=== PATIENT | male | born 1935 | race Caucasian/White ===

== ENCOUNTER 2023-11-07 16:17 | Inpatient (IN) ==
[2023-11-07 18:34] VITALS: BMI 30.1
--- NOTE | 2023-11-07 18:38 | DR.H&P ---
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 Now with non-healing wound to the right third toe and had lower extremity Doppler studies showing calcified vessels with indices of 1.61 on the right and left ankle brachial indices of 0.89 and 1.13 . Past Medical History Past Medical History: Coronary Artery Disease, CVA (old right hemispheric stroke with weakness of the left arm and left leg ), Dementia, Diabetes and Dyslipidemia Additional Medical History: multiple skin cancers removed from the ,face head and ears , history of aortic valve replacement ( bovine) ,history of stints of the right leg Past Surgical History Surgical History: CABG/Valve Surgery and Other (pacemaker placement, amputation right toe and distal phalanx right 2nd toe) Social History Does patient currently use any type of tobacco product: No Have you used tobacco products in the last 12 months: No Alcohol Use: None Drug Use: None Medications Home Medications: Clindamycin 300 milligrams Q8 hours Eliquis 2.5 milligrams B ID aspirin 81 milligrams daily atorvastin 80 mg daily Lasix 40 milligrams daily Coreg 12.5 milligrams B ID amiodarone 200 milligrams daily Linzess 72 micrograms before each meal Review of Systems Constitutional: See HPI Eyes: No Symptoms Reported ENT: No Symptoms Reported Respiratory: No Symptoms Reported Cardiovascular: No Symptoms Reported Gastrointestinal: No Symptoms Reported Genitourinary: No Symptoms Reported Musculoskeletal: No Symptoms Reported Skin: See HPI Neurological: No Symptoms Reported Physical Exam Vital Signs: Vital Signs Temperature 97.8 F Pulse Rate [Bilateral Radial] 60 Respiratory Rate 17 Blood Pressure [Left Arm] 169/73 O2 Sat by Pulse Oximetry 96 Oriented: Person and Not Oriented; negative Time or Place Eyes: Normal Ear: Normal Nose: Normal Throat: Normal Respiratory: Clear Throughout Cardiovascular: Normal and Other (paced rhythm, palpable femoral pulses bilaterally, absent pulses both legs at the ankles ) : Normal Auscultation: Bowel Sounds: Normal Palpation: Normal Tenderness: Normal Skin: Other (multiple skin cancers and multiple incisions of the head and ears for removal of several skin cancers in the past ) Musculoskeletal: Normal Psychiatric: Normal Mood Description: Calm Affect: Normal Speech Pattern: Clear Assessment/Plan (1) Atherosclerosis of [place] arteries of extremities with rest pain, right leg: Status: Acute Plan: reason for admission ,wound right third toe ,begin Heparin drip ,obtain CT angiogram of the aorta with bilateral runoff (2) Atherosclerosis of [place] arteries of extremities with rest pain, left leg: Status: Acute Plan: CT angiogram of the aorta with bilateral runoff (3) Aortic valve disorder: Status: Acute Plan: bovine valve in place ,patient on Eliquis (4) Type 2 diabetes mellitus without complications: Status: Acute Plan: sliding scale insulin (5) Essential (primary) hypertension: Status: Acute Plan: home medications (6) Hyperlipidemia: Status: Acute Plan: home medications (7) Personal history of cerebrovascular accident with current residual effects: Status: Acute Plan: follow (8) Pacemaker: Status: Acute Plan: follow ,obtain 12 lead EKG Review H&P Reviewed: Yes Patient was examined?: Yes
[2023-11-07 18:56] LABS: BASOPHILS # (AUTO) 0.1 X10^3/uL (0.0-0.1); EOSINOPHILS # (AUTO) 0.4 x10^3/uL (0.0-0.2); EOSINOPHILS % (AUTO) 3.4 % (0.9-2.9); HEMATOCRIT 31.6 % (42.0-54.0); HEMOGLOBIN 10.5 g/dL (13.5-18.0); LYMPHOCYTES # (AUTO) 1.7 X10^3/uL (1.3-2.9); LYMPHOCYTES % (AUTO) 15.9 % (21.0-51.0); MEAN CORPUSCULAR HEMOGLOBIN 30.7 pg (27.0-34.0); MEAN CORPUSCULAR HGB CONC 33.2 g/dL (33.0-35.0); MEAN CORPUSCULAR VOLUME 92.6 fL (80.0-100.0); MEAN PLATELET VOLUME 7.5 fL (7.4-11.0); MONOCYTES # (AUTO) 1.2 x10^3/uL (0.3-0.8); MONOCYTES % (AUTO) 10.9 % (0.0-13.0); NEUTROPHILS # (AUTO) 7.4 x10^3/uL (2.2-4.8); NEUTROPHILS % (AUTO) 68.8 % (42.0-75.0); PLATELET COUNT 281 X10^3/uL (150.0-450.0); RED BLOOD COUNT 3.41 X10^6/uL (4.7-6.0); WHITE BLOOD COUNT 10.8 X10^3/uL (3.6-10.0)
[2023-11-07 19:00] LABS: INR 1.47 (0.8-1.3)
[2023-11-07 19:06] LABS: ALANINE AMINOTRANSFERASE 15 Units/L (12-78); ALBUMIN 2.4 g/dL (3.4-5.0); ALKALINE PHOSPHATASE 81 Units/L (46-116); ASPARTATE AMINO TRANSFERASE 16 Units/L (15-37); BLOOD UREA NITROGEN 61 mg/dL (7-18); CALCIUM 8.5 mg/dL (8.5-10.1); CARBON DIOXIDE 24.8 mmol/L (21-32); CHLORIDE 109 mmol/L (98-107); COR CA(FOR HYPOALB) 9.8 mg/dL (8.5-10.1); CREATININE 2.81 mg/dL (0.70-1.30); GLUCOSE 67 mg/dL (65-99); POTASSIUM 5.1 mmol/L (3.5-5.1); SODIUM 144 mmol/L (136-145); TOTAL PROTEIN 6.9 g/dL (6.4-8.2); eGFR NON BLACK RACES 23 (>60)
[2023-11-07] MEDS: LR 1,000 ML IV 1,000 ML IV SCH (19:18)
--- NOTE | 2023-11-07 19:33 | EKG ---
Test Reason : ISCHEMIA Blood Pressure : */* mmHG Vent. Rate : 60 BPM Atrial Rate : 60 BPM P-R Int : 248 ms QRS Dur : 170 ms QT Int : 510 ms P-R-T Axes : * 136 32 degrees QTc Int : 510 ms AV dual-paced rhythm with prolonged AV conduction Abnormal ECG No previous ECGs available Confirmed by Migel Arce MD ([id number]) on 11/08/2023 7:39:36 AM Referred By: Confirmed By: Migel Arce MD
[2023-11-07] MEDS: ZOSYN VIAL 3.375 GRAMS 3.375 G in NS 100 ML IV 100 ML IV SCH (20:00)
--- NOTE | 2023-11-07 20:36 | RAD ---
EXAM:CHESTHISTORY:CENTRAL LINE PLACEMENT;COMPARISON:None.TECHNIQUE:Fron arsh view of the chest was submitted for interpretation.FINDINGS:Left-sided cardiac pacer noted the cardiomediastinal silhouette is large in the size. Evidence of previous valvuloplasty. Lungs show left pleural fluid with left basilar airspace disease.IMPRESSION:Left pleural fluid with left basilar airspace disease. Left-sided cardiac pacer noted. Left-sided central catheter tip may project over the superior vena cava.THIS IS AN ELECTRONICALLY VERIFIED FINAL REPORT11/07/2023 8:32 PM - Electronically signed by Hemanth Villalba MD
[2023-11-07] MEDS: COREG TAB 12.5 MG PO SCH (20:53)
[2023-11-07] MEDS: HEPARIN SODIUM INJ 5000 UNITS IVP ONE ×2 (21:03→21:18)
[2023-11-07] MEDS: HEPARIN SODIUM IN D5W 25,000 UNITS/500 ML BAG IV PRN (21:17)
[2023-11-07] MEDS ORDERED: NovoLIN R (or HumuLIN R) SUBCUT PRN (21:22)
[2023-11-08] MEDS ORDERED: HIBICLENS WASH ONE (04:20)
[2023-11-08] MEDS: HIBICLENS WASH EXT ONE (05:31)
[2023-11-08] MEDS: ASPIRIN 81 MG CHEWTAB PO SCH (08:30)
[2023-11-08] MEDS: LIPITOR TAB 80 MG PO SCH (08:43)
[2023-11-08] MEDS: CORDARONE TAB 200 MG PO SCH (08:44)
[2023-11-08] MEDS: NS 100 ML IV 100 ML ONE (12:13)
[2023-11-08] MEDS: NS 1,000 ML IV 1,000 ML ONE (12:13)
[2023-11-08] MEDS: ANCEF VIAL 1 GRAM ONE (12:13)
[2023-11-08] MEDS: NEO-SYNEPHRINE INJ ONE (12:33)
[2023-11-08] MEDS: MARCAINE 0.5% ONE (12:43)
[2023-11-08] MEDS: VISIPAQUE 100 ML ONE (12:43)
[2023-11-08] MEDS: VISIPAQUE 50 ML ONE (12:43)
[2023-11-08] MEDS: DIPRIVAN VIAL 40 ML ONE (12:43)
[2023-11-08] MEDS: HEPARIN SODIUM IN D5W 75,000 UNITS/1,500 ML BAG ONE (12:43)
[2023-11-08] MEDS: HEPARIN SODIUM INJ 5000 UNITS ONE (12:45)
[2023-11-08] MEDS: NS 500 ML IV 500 ML IV ONE (12:58)
[2023-11-08] MEDS: PROTAMINE SULFATE 50 MG VIAL ONE (13:35)
[2023-11-08] MEDS: MARCAINE 0.25% INJ ONE (13:35)
--- NOTE | 2023-11-08 13:50 | OR.IMMED ---
IMMEDIATE POST-OP NOTE Immediate Post-Op Note Date of surgery/procedure: 11/08/23 Pre-Op Diagnosis: Critical ischemia right leg with non-healing wound right third toe Post-Op Diagnosis: same Procedure: aortogram, arteriogram right leg , Arch me and angioplasty right posterior tibial artery ,atherectomy and Drug coated balloon angioplasty right tibial peroneal trunk, angioplasty right anterior tibial artery Description of Procedure: dictated Surgeon/Brick Unloader Tender: Adonis Findings: occlusion of the take off of the Right posterior tibial artey, severe disease right tibial trunk ,diffuse disease of the entire right posterior tibial artery and right anterior tibial artery Estimated Blood Loss: < 50 cc Complications: none Progress Notes: return to the floor ,change to po antibiotics , slowly to remain ,BMP in the morning , begin Xarelto 2.5 mg bid , probably discharge tomorrow.
[2023-11-08] MEDS: SNACK - Diabetic Appropriate PO SCH (20:58)
[2023-11-08] MEDS: XARELTO PO SCH (21:13)
[2023-11-09 04:34] VITALS: TEMP 98.3
[2023-11-09 05:53] LABS: CALCIUM 7.6 mg/dL (8.5-10.1); CARBON DIOXIDE 22.7 mmol/L (21-32); CREATININE 2.95 mg/dL (0.70-1.30); POTASSIUM 5.2 mmol/L (3.5-5.1)
[2023-11-09 05:55] VITALS: PULSE 60
--- NOTE | 2023-11-09 08:32 | NOTE.SOAP ---
Soap Note Note for Day of Date of Exam: 11/09/23 Subjective Data Subjective Data: Patient is POD1 s/p 3rd digit amputation of the right foot. He is doing well this am and ready to go home. Denies any pain, fever, chills, sob, dizziness or nausea. 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 Explained that he is to keep dressings c/d/i until his follow up visit with dr. Garcia early next week. Patient being followed by Dr. Lamb for vascular intervention. I am putting him on a 10 day course of Doxycycline. He can be Full weight bearing in a surgical shoe. Dressings were clean this am, did not require to be changed. He is to call the podiatry office to make an appointment for saturday or saturday or sooner if any problems arise.
[2023-11-09 10:25] VITALS: O2SAT 99
--- NOTE | 2023-11-09 12:01 | W.DIS.FURT ---
Summary of Discharge Discharge Summary of Date Date of Exam: 11/09/23 Admission Date Date of Admission: 11/07/23 Admission Diagnosis Hospital Course: 88 yo male with ulcer to end of right 3rd toe with progression and no palpable distal pulses of the right foot. Admitted and placed on heparin drip. Creatinine precluded CTA and on table arteriogram showed significant disease below the knee and had atherectomy and angioplasty right posterior tibial artery ( completely occluded proximally), atherectomy and drug coated balloon angioplasty right tibial peroneal trunk( severe stenosis) and angioplasty of the diffusely diseased right anterior tibial artery . 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 Will be discharged home today on his usual medications and begin Xarelto 2.5 mg po BID. and po Doxycycline .He will have appointment to see me on 11/25/2023 and will see Radha Mayer on 11/13/2023. Vital Signs: Vital Signs (72 hours) 11/07/23 17:45 11/07/23 17:45 11/07/23 19:00 Temperature 97.8 F Pulse Rate Pulse Rate [Bilateral Radial] 60 60 Respiratory Rate 17 15 Blood Pressure Blood Pressure [Left Arm] 169/73 159/59 O2 Sat by Pulse Oximetry 96 94 L Oxygen Delivery Method Room Air Room Air Room Air Oxygen Flow Rate FIO2% 11/07/23 19:00 11/07/23 19:00 11/07/23 20:00 Temperature 97.9 F Pulse Rate 60 62 Pulse Rate [Bilateral Radial] Respiratory Rate 16 20 Blood Pressure 159/59 120/87 Blood Pressure [Left Arm] O2 Sat by Pulse Oximetry 95 96 Oxygen Delivery Method Room Air Room Air Room Air Oxygen Flow Rate FIO2% 11/07/23 21:00 11/07/23 22:00 11/07/23 23:00 Temperature Pulse Rate 60 60 60 Pulse Rate [Bilateral Radial] Respiratory Rate 14 12 12 Blood Pressure 140/61 126/50 130/53 Blood Pressure [Left Arm] O2 Sat by Pulse Oximetry 95 92 L 95 Oxygen Delivery Method Room Air Room Air Room Air Oxygen Flow Rate FIO2% 11/08/23 00:00 11/08/23 01:00 11/08/23 02:00 Temperature 97.8 F Pulse Rate 60 60 60 Pulse Rate [Bilateral Radial] Respiratory Rate 14 13 17 Blood Pressure 124/87 128/53 143/66 Blood Pressure [Left Arm] O2 Sat by Pulse Oximetry 94 L 93 L 95 Oxygen Delivery Method Room Air Room Air Room Air Oxygen Flow Rate FIO2% 11/08/23 03:00 11/08/23 04:00 11/08/23 05:00 Temperature 97.6 F Pulse Rate 60 61 60 Pulse Rate [Bilateral Radial] Respiratory Rate 14 15 15 Blood Pressure 120/49 142/58 135/58 Blood Pressure [Left Arm] O2 Sat by Pulse Oximetry 93 L 94 L 94 L Oxygen Delivery Method Room Air Room Air Room Air Oxygen Flow Rate FIO2% 11/08/23 06:00 11/08/23 07:00 11/07/23 18:04 Temperature Pulse Rate 60 63 Pulse Rate [Bilateral Radial] Respiratory Rate 14 21 Blood Pressure 141/54 Blood Pressure [Left Arm] O2 Sat by Pulse Oximetry 92 L 97 Oxygen Delivery Method Room Air Room Air Oxygen Flow Rate FIO2% 11/07/23 19:00 11/07/23 19:08 11/07/23 19:08 Temperature Pulse Rate 60 60 Pulse Rate [Bilateral Radial] Respiratory Rate 15 20 Blood Pressure 194/82 Blood Pressure [Left Arm] O2 Sat by Pulse Oximetry 94 L 96 Oxygen Delivery Method Oxygen Flow Rate FIO2% 11/07/23 19:14 11/07/23 19:14 11/07/23 20:00 Temperature Pulse Rate 60 60 Pulse Rate [Bilateral Radial] Respiratory Rate 16 19 Blood Pressure 159/59 Blood Pressure [Left Arm] O2 Sat by Pulse Oximetry 95 96 Oxygen Delivery Method Oxygen Flow Rate FIO2% 11/07/23 20:48 11/07/23 20:48 11/07/23 20:48 Temperature Pulse Rate Pulse Rate [Bilateral Radial] Respiratory Rate Blood Pressure 120/87 120/87 120/87 Blood Pressure [Left Arm] O2 Sat by Pulse Oximetry Oxygen Delivery Method Oxygen Flow Rate FIO2% 11/07/23 20:48 11/07/23 21:00 11/07/23 21:01 Temperature Pulse Rate 62 60 Pulse Rate [Bilateral Radial] Respiratory Rate 31 H 18 Blood Pressure 140/61 Blood Pressure [Left Arm] O2 Sat by Pulse Oximetry 96 95 Oxygen Delivery Method Oxygen Flow Rate FIO2% 11/07/23 21:01 11/07/23 22:00 11/07/23 22:01 Temperature Pulse Rate 60 60 60 Pulse Rate [Bilateral Radial] Respiratory Rate 14 13 12 Blood Pressure Blood Pressure [Left Arm] O2 Sat by Pulse Oximetry 95 93 L 92 L Oxygen Delivery Method Oxygen Flow Rate FIO2% 11/07/23 22:01 11/07/23 23:00 11/07/23 23:01 Temperature Pulse Rate 60 Pulse Rate [Bilateral Radial] Respiratory Rate 16 Blood Pressure 126/50 130/53 Blood Pressure [Left Arm] O2 Sat by Pulse Oximetry 93 L Oxygen Delivery Method Oxygen Flow Rate FIO2% 11/07/23 23:01 11/07/23 23:01 11/08/23 00:00 Temperature Pulse Rate 61 60 Pulse Rate [Bilateral Radial] Respiratory Rate 15 13 Blood Pressure 130/53 Blood Pressure [Left Arm] O2 Sat by Pulse Oximetry 95 95 Oxygen Delivery Method Oxygen Flow Rate FIO2% 11/08/23 00:00 11/08/23 01:00 11/08/23 01:07 Temperature Pulse Rate 60 Pulse Rate [Bilateral Radial] Respiratory Rate 13 Blood Pressure 124/85 128/53 Blood Pressure [Left Arm] O2 Sat by Pulse Oximetry 92 L Oxygen Delivery Method Oxygen Flow Rate FIO2% 11/08/23 01:07 11/08/23 02:00 11/08/23 02:01 Temperature Pulse Rate 60 60 60 Pulse Rate [Bilateral Radial] Respiratory Rate 30 H 12 13 Blood Pressure Blood Pressure [Left Arm] O2 Sat by Pulse Oximetry 93 L 92 L 93 L Oxygen Delivery Method Oxygen Flow Rate FIO2% 11/08/23 02:01 11/08/23 02:49 11/08/23 02:49 Temperature Pulse Rate 60 Pulse Rate [Bilateral Radial] Respiratory Rate 17 Blood Pressure 143/66 127/57 Blood Pressure [Left Arm] O2 Sat by Pulse Oximetry 95 Oxygen Delivery Method Oxygen Flow Rate FIO2% 11/08/23 03:00 11/08/23 03:00 11/08/23 04:00 Temperature Pulse Rate 60 64 Pulse Rate [Bilateral Radial] Respiratory Rate 14 17 Blood Pressure 120/49 Blood Pressure [Left Arm] O2 Sat by Pulse Oximetry 93 L 80 L Oxygen Delivery Method Oxygen Flow Rate FIO2% 11/08/23 04:01 11/08/23 04:01 11/08/23 05:00 Temperature Pulse Rate 61 60 Pulse Rate [Bilateral Radial] Respiratory Rate 15 15 Blood Pressure 142/58 Blood Pressure [Left Arm] O2 Sat by Pulse Oximetry 94 L 94 L Oxygen Delivery Method Oxygen Flow Rate FIO2% 11/08/23 05:00 11/08/23 06:00 11/08/23 06:00 Temperature Pulse Rate 60 Pulse Rate [Bilateral Radial] Respiratory Rate 14 Blood Pressure 135/58 141/54 Blood Pressure [Left Arm] O2 Sat by Pulse Oximetry 91 L Oxygen Delivery Method Oxygen Flow Rate FIO2% 11/08/23 07:00 11/08/23 07:01 11/08/23 07:01 Temperature Pulse Rate 60 60 Pulse Rate [Bilateral Radial] Respiratory Rate 15 18 Blood Pressure 111/47 Blood Pressure [Left Arm] O2 Sat by Pulse Oximetry 91 L 92 L Oxygen Delivery Method Oxygen Flow Rate FIO2% 11/08/23 08:00 11/08/23 08:01 11/08/23 08:01 Temperature Pulse Rate 61 62 Pulse Rate [Bilateral Radial] Respiratory Rate 18 19 Blood Pressure 113/46 Blood Pressure [Left Arm] O2 Sat by Pulse Oximetry 93 L 93 L Oxygen Delivery Method Oxygen Flow Rate FIO2% 11/08/23 09:00 11/08/23 09:17 11/08/23 09:17 Temperature 98 F Pulse Rate 65 60 Pulse Rate [Bilateral Radial] Respiratory Rate 17 11 L Blood Pressure 135/53 Blood Pressure [Left Arm] O2 Sat by Pulse Oximetry 90 L 92 L Oxygen Delivery Method Oxygen Flow Rate FIO2% 11/08/23 10:00 11/08/23 10:00 11/08/23 11:08 Temperature 98 F Pulse Rate 60 100 H Pulse Rate [Bilateral Radial] Respiratory Rate 12 18 Blood Pressure 120/49 98/58 Blood Pressure [Left Arm] O2 Sat by Pulse Oximetry 92 L 98 Oxygen Delivery Method Nasal Cannula Oxygen Flow Rate FIO2% 11/08/23 11:00 11/08/23 11:01 11/08/23 11:01 Temperature Pulse Rate 60 60 Pulse Rate [Bilateral Radial] Respiratory Rate 12 23 Blood Pressure 107/51 Blood Pressure [Left Arm] O2 Sat by Pulse Oximetry 93 L 93 L Oxygen Delivery Method Oxygen Flow Rate FIO2% 11/08/23 11:01 11/08/23 11:01 11/08/23 14:06 Temperature Pulse Rate 60 Pulse Rate [Bilateral Radial] Respiratory Rate 23 Blood Pressure 107/51 Blood Pressure [Left Arm] O2 Sat by Pulse Oximetry 93 L 100 Oxygen Delivery Method Oxygen Flow Rate FIO2% 11/08/23 14:07 11/08/23 14:07 11/08/23 14:08 Temperature Pulse Rate 60 62 Pulse Rate [Bilateral Radial] Respiratory Rate 17 Blood Pressure 75/34 Blood Pressure [Left Arm] O2 Sat by Pulse Oximetry 99 97 Oxygen Delivery Method Oxygen Flow Rate FIO2% 11/08/23 14:08 11/08/23 14:10 11/08/23 14:10 Temperature Pulse Rate 60 Pulse Rate [Bilateral Radial] Respiratory Rate 18 Blood Pressure 76/39 104/55 Blood Pressure [Left Arm] O2 Sat by Pulse Oximetry 100 Oxygen Delivery Method Oxygen Flow Rate FIO2% 11/08/23 14:15 11/08/23 14:15 11/08/23 14:30 Temperature Pulse Rate 60 60 Pulse Rate [Bilateral Radial] Respiratory Rate 17 15 Blood Pressure 111/54 Blood Pressure [Left Arm] O2 Sat by Pulse Oximetry 100 100 Oxygen Delivery Method Oxygen Flow Rate FIO2% 11/08/23 14:30 11/08/23 14:45 11/08/23 14:45 Temperature Pulse Rate 60 Pulse Rate [Bilateral Radial] Respiratory Rate 13 Blood Pressure 101/53 127/56 Blood Pressure [Left Arm] O2 Sat by Pulse Oximetry 100 Oxygen Delivery Method Oxygen Flow Rate FIO2% 11/08/23 15:00 11/08/23 15:00 11/08/23 15:15 Temperature Pulse Rate 60 60 Pulse Rate [Bilateral Radial] Respiratory Rate 15 18 Blood Pressure 101/49 Blood Pressure [Left Arm] O2 Sat by Pulse Oximetry 100 100 Oxygen Delivery Method Oxygen Flow Rate FIO2% 11/08/23 15:15 11/08/23 15:30 11/08/23 15:30 Temperature Pulse Rate 60 Pulse Rate [Bilateral Radial] Respiratory Rate 14 Blood Pressure 118/53 111/55 Blood Pressure [Left Arm] O2 Sat by Pulse Oximetry 100 Oxygen Delivery Method Oxygen Flow Rate FIO2% 11/08/23 15:45 11/08/23 15:45 11/08/23 16:00 Temperature 97.9 F Pulse Rate 60 60 Pulse Rate [Bilateral Radial] Respiratory Rate 17 16 Blood Pressure 119/57 Blood Pressure [Left Arm] O2 Sat by Pulse Oximetry 100 100 Oxygen Delivery Method Oxygen Flow Rate FIO2% 11/08/23 16:00 11/08/23 16:15 11/08/23 16:15 Temperature Pulse Rate 60 Pulse Rate [Bilateral Radial] Respiratory Rate 12 Blood Pressure 118/57 122/60 Blood Pressure [Left Arm] O2 Sat by Pulse Oximetry 100 Oxygen Delivery Method Oxygen Flow Rate FIO2% 11/08/23 16:30 11/08/23 16:30 11/08/23 16:45 Temperature Pulse Rate 60 60 Pulse Rate [Bilateral Radial] Respiratory Rate 13 15 Blood Pressure 108/54 Blood Pressure [Left Arm] O2 Sat by Pulse Oximetry 100 100 Oxygen Delivery Method Oxygen Flow Rate FIO2% 11/08/23 16:45 11/08/23 17:00 11/08/23 17:00 Temperature Pulse Rate 60 Pulse Rate [Bilateral Radial] Respiratory Rate 12 Blood Pressure 110/56 116/57 Blood Pressure [Left Arm] O2 Sat by Pulse Oximetry 100 Oxygen Delivery Method Oxygen Flow Rate FIO2% 11/08/23 17:15 11/08/23 17:15 11/08/23 17:30 Temperature Pulse Rate 60 60 Pulse Rate [Bilateral Radial] Respiratory Rate 11 L 10 L Blood Pressure 115/58 Blood Pressure [Left Arm] O2 Sat by Pulse Oximetry 100 100 Oxygen Delivery Method Oxygen Flow Rate FIO2% 11/08/23 17:30 11/08/23 17:45 11/08/23 17:45 Temperature Pulse Rate 60 Pulse Rate [Bilateral Radial] Respiratory Rate 13 Blood Pressure 116/57 123/56 Blood Pressure [Left Arm] O2 Sat by Pulse Oximetry 100 Oxygen Delivery Method Oxygen Flow Rate FIO2% 11/08/23 18:00 11/08/23 18:00 11/08/23 20:00 Temperature Pulse Rate 60 Pulse Rate [Bilateral Radial] Respiratory Rate 16 Blood Pressure 107/53 Blood Pressure [Left Arm] O2 Sat by Pulse Oximetry 100 Oxygen Delivery Method Nasal Cannula Oxygen Flow Rate 2 FIO2% 28 11/08/23 19:00 11/08/23 19:00 11/08/23 20:00 Temperature 98 F Pulse Rate 60 60 Pulse Rate [Bilateral Radial] Respiratory Rate 12 16 Blood Pressure 126/60 117/59 Blood Pressure [Left Arm] O2 Sat by Pulse Oximetry 100 100 Oxygen Delivery Method Nasal Cannula Nasal Cannula Nasal Cannula Oxygen Flow Rate 2 2 2 FIO2% 11/08/23 21:00 11/08/23 22:00 11/08/23 23:00 Temperature 98 F Pulse Rate 60 69 60 Pulse Rate [Bilateral Radial] Respiratory Rate 24 28 H 30 H Blood Pressure 101/49 113/79 124/59 Blood Pressure [Left Arm] O2 Sat by Pulse Oximetry 100 100 100 Oxygen Delivery Method Nasal Cannula Nasal Cannula Nasal Cannula Oxygen Flow Rate 2 2 2 FIO2% 11/09/23 00:00 11/09/23 01:00 11/09/23 02:00 Temperature Pulse Rate 60 60 60 Pulse Rate [Bilateral Radial] Respiratory Rate 18 12 12 Blood Pressure 111/55 113/56 113/53 Blood Pressure [Left Arm] O2 Sat by Pulse Oximetry 100 100 99 Oxygen Delivery Method Nasal Cannula Nasal Cannula Nasal Cannula Oxygen Flow Rate 2 2 2 FIO2% 11/09/23 03:00 11/09/23 04:00 11/09/23 05:00 Temperature 98.3 F Pulse Rate 61 61 60 Pulse Rate [Bilateral Radial] Respiratory Rate 21 28 H 14 Blood Pressure 110/54 95/49 95/52 Blood Pressure [Left Arm] O2 Sat by Pulse Oximetry 99 97 97 Oxygen Delivery Method Nasal Cannula Nasal Cannula Nasal Cannula Oxygen Flow Rate 2 2 2 FIO2% 11/09/23 06:00 11/08/23 18:16 11/08/23 18:31 Temperature Pulse Rate 60 Pulse Rate [Bilateral Radial] Respiratory Rate 31 H Blood Pressure 96/53 106/54 145/65 Blood Pressure [Left Arm] O2 Sat by Pulse Oximetry 97 Oxygen Delivery Method Nasal Cannula Oxygen Flow Rate 2 FIO2% 11/08/23 18:31 11/08/23 19:00 11/08/23 19:16 Temperature Pulse Rate Pulse Rate [Bilateral Radial] Respiratory Rate Blood Pressure 145/65 126/60 104/50 Blood Pressure [Left Arm] O2 Sat by Pulse Oximetry Oxygen Delivery Method Oxygen Flow Rate FIO2% 11/08/23 19:31 11/08/23 19:31 11/08/23 19:45 Temperature Pulse Rate Pulse Rate [Bilateral Radial] Respiratory Rate Blood Pressure 122/53 122/53 120/58 Blood Pressure [Left Arm] O2 Sat by Pulse Oximetry Oxygen Delivery Method Oxygen Flow Rate FIO2% 11/08/23 20:00 11/08/23 20:15 11/08/23 20:30 Temperature Pulse Rate Pulse Rate [Bilateral Radial] Respiratory Rate Blood Pressure 117/59 126/60 116/55 Blood Pressure [Left Arm] O2 Sat by Pulse Oximetry Oxygen Delivery Method Oxygen Flow Rate FIO2% 11/08/23 20:45 11/08/23 21:00 11/08/23 22:01 Temperature Pulse Rate Pulse Rate [Bilateral Radial] Respiratory Rate Blood Pressure 109/55 101/49 113/79 Blood Pressure [Left Arm] O2 Sat by Pulse Oximetry Oxygen Delivery Method Oxygen Flow Rate FIO2% 11/08/23 23:00 11/09/23 00:01 11/09/23 01:00 Temperature Pulse Rate Pulse Rate [Bilateral Radial] Respiratory Rate Blood Pressure 124/59 111/55 113/56 Blood Pressure [Left Arm] O2 Sat by Pulse Oximetry Oxygen Delivery Method Oxygen Flow Rate FIO2% 11/09/23 02:01 11/09/23 03:01 11/09/23 04:01 Temperature Pulse Rate Pulse Rate [Bilateral Radial] Respiratory Rate Blood Pressure 113/53 110/54 95/49 Blood Pressure [Left Arm] O2 Sat by Pulse Oximetry Oxygen Delivery Method Oxygen Flow Rate FIO2% 11/09/23 05:00 11/09/23 06:00 11/09/23 07:00 Temperature Pulse Rate Pulse Rate [Bilateral Radial] Respiratory Rate Blood Pressure 95/52 96/53 97/52 Blood Pressure [Left Arm] O2 Sat by Pulse Oximetry Oxygen Delivery Method Oxygen Flow Rate FIO2% 11/09/23 08:00 11/09/23 08:00 11/09/23 07:00 Temperature Pulse Rate 60 Pulse Rate [Bilateral Radial] Respiratory Rate 17 Blood Pressure 103/54 Blood Pressure [Left Arm] O2 Sat by Pulse Oximetry 100 Oxygen Delivery Method Nasal Cannula Oxygen Flow Rate 2 FIO2% 11/09/23 09:00 11/09/23 09:02 11/09/23 09:02 Temperature Pulse Rate 62 60 Pulse Rate [Bilateral Radial] Respiratory Rate 30 H 29 H Blood Pressure 132/58 Blood Pressure [Left Arm] O2 Sat by Pulse Oximetry 98 98 Oxygen Delivery Method Oxygen Flow Rate FIO2% 11/09/23 09:54 11/09/23 10:00 11/09/23 10:01 Temperature Pulse Rate 60 Pulse Rate [Bilateral Radial] Respiratory Rate 17 Blood Pressure 112/56 Blood Pressure [Left Arm] O2 Sat by Pulse Oximetry 99 Oxygen Delivery Method Nasal Cannula Oxygen Flow Rate 2 FIO2% 28 11/09/23 10:01 11/09/23 10:01 Temperature Pulse Rate 60 Pulse Rate [Bilateral Radial] Respiratory Rate 16 Blood Pressure 112/56 Blood Pressure [Left Arm] O2 Sat by Pulse Oximetry 99 Oxygen Delivery Method Oxygen Flow Rate FIO2% Labs: Laboratory Last Values WBC 10.8 X10^3/uL (3.6-10.0) H 11/07/23 18:40 RBC 3.41 X10^6/uL (4.7-6.0) L 11/07/23 18:40 Hgb 10.5 g/dL (13.5-18.0) L 11/07/23 18:40 Hct 31.6 % (42.0-54.0) L 11/07/23 18:40 MCV 92.6 fL (80.0-100.0) 11/07/23 18:40 MCH 30.7 pg (27.0-34.0) 11/07/23 18:40 MCHC 33.2 g/dL (33.0-35.0) 11/07/23 18:40 RDW 14.0 % (11.6-16.5) 11/07/23 18:40 Plt Count 281 X10^3/uL (150.0-450.0) 11/07/23 18:40 MPV 7.5 fL (7.4-11.0) 11/07/23 18:40 Neut % (Auto) 68.8 % (42.0-75.0) 11/07/23 18:40 Lymph % (Auto) 15.9 % (21.0-51.0) L 11/07/23 18:40 Page % (Auto) 10.9 % (0.0-13.0) 11/07/23 18:40 Eos % (Auto) 3.4 % (0.9-2.9) H 11/07/23 18:40 Baso % (Auto) 1.0 % (0.2-1.0) 11/07/23 18:40 Neut # (Auto) 7.4 x10^3/uL (2.2-4.8) H 11/07/23 18:40 Lymph # (Auto) 1.7 X10^3/uL (1.3-2.9) 11/07/23 18:40 Page # (Auto) 1.2 x10^3/uL (0.3-0.8) H 11/07/23 18:40 Eos # (Auto) 0.4 x10^3/uL (0.0-0.2) H 11/07/23 18:40 Baso # (Auto) 0.1 X10^3/uL (0.0-0.1) 11/07/23 18:40 Absolute Nucleated RBC 0.0 /100WBC 11/07/23 18:40 PT 18.8 SECONDS (11.8-14.3) 11/08/23 09:51 INR Target Range - 11/08/23 09:51 INR 1.60 (0.8-1.3) H 11/08/23 09:51 APTT 72.0 SECONDS (22.9-36.5) H 11/08/23 09:51 PTT Comment - 11/08/23 09:51 Sodium 142 mmol/L (136-145) 11/09/23 04:20 Corrected Sodium 143 mmol/L (136-145) 11/09/23 04:20 Potassium 5.2 mmol/L (3.5-5.1) H 11/09/23 04:20 Chloride 110 mmol/L (98-107) H 11/09/23 04:20 Carbon Dioxide 22.7 mmol/L (21-32) 11/09/23 04:20 BUN 61 mg/dL (7-18) H 11/09/23 04:20 Creatinine 2.95 mg/dL (0.70-1.30) H 11/09/23 04:20 Est GFR (MDRD) Af Amer 26 (>60) L 11/09/23 04:20 Est GFR (MDRD) Non-Af 22 (>60) L 11/09/23 04:20 Glucose 134 mg/dL (65-99) H 11/09/23 04:20 POC Glucose (mg/dL) 141 mg/dL (65-99) H 11/09/23 06:14 Calcium 7.6 mg/dL (8.5-10.1) L 11/09/23 04:20 Corrected Calcium 9.8 mg/dL (8.5-10.1) 11/07/23 18:40 Total Bilirubin 0.30 mg/dL (0.2-1.0) 11/07/23 18:40 AST 16 Units/L (15-37) 11/07/23 18:40 ALT 15 Units/L (12-78) 11/07/23 18:40 Alkaline Phosphatase 81 Units/L (46-116) 11/07/23 18:40 Total Protein 6.9 g/dL (6.4-8.2) 11/07/23 18:40 Albumin 2.4 g/dL (3.4-5.0) L 11/07/23 18:40 Globulin 4.5 g/dL (2.5-4.5) 11/07/23 18:40 Albumin/Globulin Ratio 0.5 Ratio (1.1-2.1) L 11/07/23 18:40 Reason For Visit: BILATERAL CRITICAL ISHEMIA TO LOWER EXT'S Discharge Date Discharge Date: 11/09/23 Discharge Diagnosis All Active Problems (Updated 11/07/23 @ 18:36 by Willam Lamb) 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 Pt is to keep follow up appointment as instructed and take medications as ordered. Discharge Medications Discharge Medications: No Known Drug Allergies [NKDA] Allergy (Verified 11/07/23 18:17) CONTINUE taking the following medications amiodarone 200 mg tablet 200 mg PO QDAY 11/07/23 [History] apixaban 2.5 mg tablet (Eliquis) 2.5 mg PO BID 11/07/23 [History] aspirin 81 mg chewable tablet 81 mg PO DAILY 11/07/23 [History] atorvastatin 80 mg tablet 80 mg PO QDAY 11/07/23 [History] carvedilol 12.5 mg tablet 6.25 mg PO BID 11/07/23 [History] furosemide 20 mg tablet 40 mg PO DAILY 11/07/23 [History] linaclotide 72 mcg capsule (Linzess) 72 mcg PO QAM PRN 11/07/23 [History] New Prescriptions doxycycline hyclate 100 mg capsule 100 mg PO QDAY #10 caps 11/08/23 [Rx] Xarelto 2.5 mg po BID Discharge Disposition Assessment: see hospital course Discharge Plan Discharge Plan Hospital Course: 88 yo male with ulcer to end of right 3rd toe with progression and no palpable distal pulses of the right foot. Admitted and placed on heparin drip. Creatinine precluded CTA and on table arteriogram showed significant disease below the knee and had atherectomy and angioplasty right posterior tibial artery ( completely occluded proximally), atherectomy and drug coated balloon angioplasty right tibial peroneal trunk( severe stenosis) and angioplasty of the diffusely diseased right anterior tibial artery . 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 Will be discharged home today on his usual medications and begin Xarelto 2.5 mg po BID. and po Doxycycline .He will have appointment to see me on 11/25/2023 and will see Radha Mayer on 11/13/2023. Patient Disposition: 01 HOME, SELF-CARE Condition: Stable Health Concerns: Post Hospitalization: new medications and changes needed to prevent readmission or further decline. Pt educated and given instructions on all concerns. Care Plan Goals: Problem: Impaired Skin Integrity Goal: Improved Skin Integrity Instructions: Follow provided instructions. Follow up with primary physician as directed. Contact primary care physician or report to the closest Emergency Room if condition worsens. Plan of Treatment: Continue with present treatment and follow up plan. Pt is to keep follow up appointment as instructed and take medications as ordered. Assessment: see hospital course Prescription drug monitoring program results: PDMP was not reviewed Prescriptions: New doxycycline hyclate 100 mg capsule 100 mg PO QDAY Qty: 10 0RF Rx Instructions: Take 1 tab daily Xarelto 2.5 mg tablet 2.5 mg PO BID Qty: 180 0RF Continued atorvastatin 80 mg tablet 80 mg PO QDAY carvedilol 12.5 mg tablet 6.25 mg PO BID amiodarone 200 mg tablet 200 mg PO QDAY furosemide 20 mg tablet 40 mg PO DAILY Eliquis 2.5 mg tablet 2.5 mg PO BID Linzess 72 mcg capsule 72 mcg PO QAM PRN aspirin 81 mg Tablet,Chewable 81 mg PO DAILY Follow ups/Referrals Follow ups/Referrals: JASPAL ECHEVARRIA [Primary Care Provider] - 1 WEEK Willam Lamb [STAFF PHYSICIAN] - 1 WEEK Instructions Instructions: Living With an Amputation, Phantom Limb Pain, Gangrene, Endovascular Therapy for Peripheral Vascular Disease, Care After, Traumatic Toe Amputation, Diabetic Neuropathy, Preventing Diabetes Mellitus Complications Stand Alone Forms: Excuse From Work or School, Post Hospital Follow Up Care
[2023-11-09 12:10] VITALS: BP 117/58; RESP 14
--- NOTE | 2023-11-09 17:44 | DR.OPNOTE ---
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 The left groin and entire right leg were prepped and draped in sterile fashion. The patient was given intravenous sedation supervised by myself . Time out for the procedure obtained. Ultrasound used to identify the left femoral artery and the skin overlying it infiltrated with 0.5% Marcaine. Ultrasound then used to guide puncture of the left femoral artery and a 0.012 inch guide wire was placed. Incision made over the guide wire at the skin edge with a # 11 knife blade and a micro sheath placed over the guide wire into the left femoral artery The small guidewire exchanged for a 0.035 inch Advantage glide wire and the micro sheath exchanged for a 5 Fr vascular sheath Patient given 5000 units of intravenous heparin. Omni catheter was placed over the guide wire into the aorta and diagnostic aortogram carried out with the power injector showing normal aorta and iliac arteries . Omni catheter was used to steer the guide wire down the right common iliac artery to the distal right external iliac artery . 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 Loyalhanna catheter and the guide wire were used to traverse the arteries of the right leg ultimately ending in the right posterior tibial artery beyond the occlusion and to the ankle . This was selective catheterization. 0.035 inch wire removed and exchanged for a 0.014 inch wire. Over this wire we placed the [place] atherectomy device and performed attherectomy of the right posterior tibial artey proximally and of mthe right tibial peroneal trunk . At this point we performed balloon angioplasty of the right posterior tibial artery using a 2.0 mm x 220 mm [place] angioplasty balloon. This balloon removed and the right tibial peroneal trunk balloon dialted with a 4mm x 100 mm [place] drug coated balloon inflating it for tjhree minutes. Wire pulled back and the right anterior tibial artery had placement of 0.014 inch wire as a second selective catherization. Over tis wire we balloon dilated the right anterior tibial artery with a Lawton 2.5 mmx 222 mm angioplasty balloon. This ballon removed . After this a follow up arteriogram showed excellent results . All wires and devices removed. The 7 Fr sheath was pulled back into the aorta and a 0.035 inch wire placed. The destination sheath exchanged for an Angioseal device used to close the puncture of the left femoral artery. Dressing applied to the left groin. The patient taken to same day surgery in good condition. 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 Type of Fluids Used:: Lactated Ringers Total Amount of Fluid Infused:: 600cc Urine output: 300cc EBL: 50 cc Complications:: none Needle/Sponge Count:: correct Disposition/Condition: Pt. tolerated procedure without difficulty. Patient taken to [facility] in stable condition.
--- NOTE | 2023-11-10 18:26 | DR.OPNOTE ---
OP NOTE Pre-Op Diagnosis: critical ischemia right leg, no IV access Post-Op Diagnosis: same Procedure Date Date Of Procedure: 11/07/23 Procedure: PROCEDURE: LEFT SUBCLAVIAN VEIN TRIPLE LUMEN CATHETER PLACEMENT NARRATIVE : The patient was paced in Trendelenburg position and the left neck and chest prepped and draped in sterile fashion .The skin underlying the left clavicle infiltrated with 1% Xylocain as was the left chest .16 gauge needle used to puncture the left subclavian vein and a 0.035 inch wire placed .Incision made over the wire at the skin with a number 11 knife blade .Dilator placed over the wire into the vein and removed .Over the wire we placed the triple Lumen catheter and removed the wire .All ports were aspirated of blood and flushed with heparinized saline .The catheter was secured to the skin with interrupted silk sutures .Post procedure chest x-ray showed good placement and no pneumothorax . Type of Anesthesia: Local (1 % Marcaine) EBL: minimal Complications:: none Needle/Sponge Count:: correct Disposition/Condition: Pt. tolerated procedure without difficulty. Post procedure CXR shows no pneumothoras with good placement .
== END 2023-11-09 13:20 | disposition home or self-care (01) | DRG 272 ==
LOC: ICU 17:11
PROVIDERS: ADMIT Surgery; ATTEND Surgery
DX: Z95.0 Presence of cardiac pacemaker; Z85.828 Personal history of other malignant neoplasm of skin; E78.5 Hyperlipidemia, unspecified; B96.89 Other specified bacterial agents as the cause of diseases classified elsewhere; I35.9 Nonrheumatic aortic valve disorder, unspecified; R79.1 Abnormal coagulation profile; Z86.73 Personal history of transient ischemic attack (TIA), and cerebral infarction without residual deficits; I70.223 Atherosclerosis of native arteries of extremities with rest pain, bilateral legs; E11.65 Type 2 diabetes mellitus with hyperglycemia; I25.10 Atherosclerotic heart disease of native coronary artery without angina pectoris